=== PATIENT | male | born 1970 | race American Indian/Alaskan Native ===

== ENCOUNTER 2018-08-23 02:54 | Emergency (ER) | payer SELFPAY ==
[2018-08-23] MEDS ORDERED: TORADOL IM ONE (03:31)
[2018-08-23] MEDS ORDERED: TORADOL ONE (03:35)
--- NOTE | 2018-08-23 05:05 | Cat Scan Report ---
FINAL REPORT PROCEDURE: CT HEAD/BRAIN WO CON TECHNIQUE: Computerized tomography of the head was performed without contrast material. HISTORY: headache COMPARISON: No prior studies are available for comparison. FINDINGS: Skull and scalp: Normal. Paranasal sinuses: Normal. Ventricles and subarachnoid spaces: Normal. Cerebrum: No evidence of hemorrhage, acute infarction or mass . Cerebellum and brainstem: No evidence of hemorrhage, acute infarction or mass. Vasculature: Normal. Comments: None. IMPRESSION: Normal Examination
[2018-08-23 08:59] VITALS: BP 158/89
--- NOTE | 2018-08-23 09:41 | Emergency Department Report ---
ED General Adult HPI - General Chief complaint: Headache Stated complaint: SEVERE HEADACHE Time Seen by Provider: 08/23/18 08:52 Source: patient Mode of arrival: Ambulatory Limitations: No Limitations - History of Present Illness Initial comments: This is a 47-year-old male who complains of headache. He states that he has a history of hypertension but is not taking medication currently. He has had no fever or chills. His current blood pressure is 160/90. He states that he has "headaches every year". This is been going on for at least 3 years. Patient denies nausea vomiting or fever. He states he's had no sinus drainage. He does not report any neck pain. He denies any familial history of aneurysm or migraine headache. He denies any neurological change. He is very poorly cooperative to providing any historical information and does so under apparent duress. He states that his headache that he was seen here for on 08/19/2018 was on his right side and now the current headache is on the left side. He states that the headaches generally last about 3 hours but may be recurrent. He denies any photophobia scintillations or scotomata. A CT of the head was obtained on 08/19/2018. It showed no acute intracranial abnormality. -: Gradual, week(s) Location: head Severity scale (0 -10): 7 Quality: sharp Consistency: constant Improves with: none Worsens with: none Associated Symptoms: denies other symptoms - Related Data Previous Rx's Medication Instructions Recorded Last Taken Type Famotidine [Pepcid] 40 mg PO QDAY 6 Days #6 tablet 07/11/18 Unknown Rx diphenhydrAMINE [Benadryl CAP] 50 mg PO Q8HR PRN #12 capsule 07/11/18 Unknown Rx predniSONE [Prednisone] 10 mg PO QAM 6 Days #1 tab.ds.pk 07/11/18 Unknown Rx Amoxicillin/Potassium Clav 1 each PO BID 10 Days #20 tablet 08/19/18 Unknown Rx [Augmentin 875-125 Tablet] Clindamycin [Clindamycin CAP] 300 mg PO Q6H #40 capsule 08/19/18 Unknown Rx Ibuprofen 800 mg PO TID PRN #30 tablet 08/19/18 Unknown Rx Metoclopramide [Reglan] 10 mg PO ACHS PRN #28 tablet 08/19/18 Unknown Rx Oxymetazoline 0.05% [Afrin] 2 spray NS BID #1 bottle 08/19/18 Unknown Rx diphenhydrAMINE [Benadryl CAP] 25 mg PO Q6HR PRN #28 capsule 08/19/18 Unknown Rx Butalb/Acetaminophen/Caffeine 1 cap PO Q6HR PRN #14 cap 08/23/18 Unknown Rx [Fioricet 50-300-40 mg CAP] amLODIPine [Norvasc] 5 mg PO DAILY #30 tab 08/23/18 Unknown Rx Allergies Allergy/AdvReac Type Severity Reaction Status Date / Time lisinopril Allergy Unknown Verified 07/11/18 13:51 pineapple Allergy Unknown Verified 07/11/18 13:51 ED Review of Systems ROS: Stated complaint: SEVERE HEADACHE Other details as noted in HPI Constitutional: denies: chills, fever Eyes: denies: eye pain, eye discharge, vision change ENT: denies: ear pain, throat pain Respiratory: denies: cough, shortness of breath, wheezing Cardiovascular: denies: chest pain, palpitations Endocrine: no symptoms reported Gastrointestinal: denies: abdominal pain, nausea, diarrhea Genitourinary: denies: urgency, dysuria Musculoskeletal: denies: back pain, joint swelling, arthralgia Skin: denies: rash, lesions Neurological: headache. denies: weakness, paresthesias Psychiatric: denies: anxiety, depression Hematological/Lymphatic: denies: easy bleeding, easy bruising ED Past Medical Hx - Past Medical History Previous Medical History?: Yes Hx Hypertension: Yes (HCTZ) - Surgical History Past Surgical History?: Yes Additional Surgical History: left knee,hernia repair - Social History Smoking Status: Never Smoker Substance Use Type: None - Medications Home Medications: Home Medications Medication Instructions Recorded Confirmed Last Taken Type Famotidine [Pepcid] 40 mg PO QDAY 6 Days #6 tablet 07/11/18 Unknown Rx diphenhydrAMINE [Benadryl CAP] 50 mg PO Q8HR PRN #12 capsule 07/11/18 Unknown Rx predniSONE [Prednisone] 10 mg PO QAM 6 Days #1 tab.ds.pk 07/11/18 Unknown Rx Amoxicillin/Potassium Clav 1 each PO BID 10 Days #20 tablet 08/19/18 Unknown Rx [Augmentin 875-125 Tablet] Clindamycin [Clindamycin CAP] 300 mg PO Q6H #40 capsule 08/19/18 Unknown Rx Ibuprofen 800 mg PO TID PRN #30 tablet 08/19/18 Unknown Rx Metoclopramide [Reglan] 10 mg PO ACHS PRN #28 tablet 08/19/18 Unknown Rx Oxymetazoline 0.05% [Afrin] 2 spray NS BID #1 bottle 08/19/18 Unknown Rx diphenhydrAMINE [Benadryl CAP] 25 mg PO Q6HR PRN #28 capsule 08/19/18 Unknown Rx Butalb/Acetaminophen/Caffeine 1 cap PO Q6HR PRN #14 cap 08/23/18 Unknown Rx [Fioricet 50-300-40 mg CAP] amLODIPine [Norvasc] 5 mg PO DAILY #30 tab 08/23/18 Unknown Rx ED Physical Exam - General Limitations: No Limitations General appearance: alert, in no apparent distress - Head Head exam: Present: atraumatic, normocephalic - Eye Eye exam: Present: normal appearance, PERRL, EOMI. Absent: scleral icterus, conjunctival injection, periorbital swelling, periorbital tenderness Pupils: Present: normal accommodation - ENT ENT exam: Present: mucous membranes moist - Neck Neck exam: Present: normal inspection. Absent: tenderness, meningismus - Respiratory Respiratory exam: Present: normal lung sounds bilaterally. Absent: respiratory distress - Cardiovascular Cardiovascular Exam: Present: regular rate, normal rhythm. Absent: systolic murmur, diastolic murmur, rubs, gallop - GI/Abdominal GI/Abdominal exam: Present: soft, normal bowel sounds. Absent: distended, tenderness, guarding, rebound, rigid - Rectal Rectal exam: Present: deferred - Extremities Exam Extremities exam: Present: normal inspection - Back Exam Back exam: Present: normal inspection - Neurological Exam Neurological exam: Present: alert, oriented X3, CN II-XII intact. Absent: motor sensory deficit - Psychiatric Psychiatric exam: Present: normal affect, normal mood - Skin Skin exam: Present: warm, dry, intact, normal color. Absent: rash ED Course Vital Signs 08/23/18 08/23/18 08/23/18 03:26 04:15 08:57 Temperature 98.1 F 98.3 F Pulse Rate 61 52 L Respiratory 18 18 18 Rate Blood Pressure 161/86 Blood Pressure 158/89 [Right] O2 Sat by Pulse 98 100 Oximetry 08/23/18 08:58 Temperature Pulse Rate Respiratory 18 Rate Blood Pressure Blood Pressure [Right] O2 Sat by Pulse 100 Oximetry - Reevaluation(s) Reevaluation #1: The patient's headache pattern is not suggestive of secondary headache, especially considering the rotational pattern of being on the left than on the right. This may be a migraine variant. I do not think there is an indication for a vascular study at this time. There is nothing to suggest subarachnoid hemorrhage. Indeed the patient states that this pattern has been going on for "years". His blood pressure is not amply controlled. He will be treated for headache and referred to primary care. He is encouraged to be evaluated by a neurologist. 08/23/18 09:41 ED Medical Decision Making - Radiology Data Radiology results: report reviewed Critical care attestation.: If time is entered above; I have spent that time in minutes in the direct care of this critically ill patient, excluding procedure time. ED Disposition Clinical Impression: Essential hypertension Cephalalgia Qualifiers: Headache type: unspecified Headache chronicity pattern: chronic headache Intractability: not intractable Qualified Code(s): R51 - Headache Disposition: DC-01 TO HOME OR SELFCARE Is pt being admited?: No Does the pt Need Aspirin: No Condition: Stable Instructions: Acute Headache (ED), Hypertension (ED) Additional Instructions: Control of your blood pressure is needed. Rx amlodipine. I've given you another medication for your headaches. Further evaluation with a neurologist/primary care clinic is strongly recommended. Return any acute change or worsening symptoms. Prescriptions: amLODIPine [Norvasc] 5 mg PO DAILY #30 tab Butalb/Acetaminophen/Caffeine [Fioricet 50-300-40 mg CAP] 1 cap PO Q6HR PRN #14 cap PRN Reason: Headache Referrals: PRIMARY CARE, [Primary Care Provider] - 3-5 Days Time of Disposition: 09:44
[2018-08-23] MEDS ORDERED: MORPHINE IM ONE (09:46)
[2018-08-23] MEDS ORDERED: ZOFRAN ODT PO ONE (09:51)
[2018-08-23] MEDS ORDERED: ZOFRAN ODT ONE (09:55)
== END 2018-08-23 10:11 | disposition home or self-care (01) ==
LOC: ED 02:54
DX: I10 Essential (primary) hypertension (principal); Z91.018 Allergy to other foods; Z88.4 Allergy status to anesthetic agent
CPT/HCPCS: 70450; 96372; 99283; J1885; J2270; Q0162

== ENCOUNTER 2018-11-29 21:52 | Emergency (ER) | payer OTHER ==
[2018-11-29] MEDS ORDERED: BENADRYL IV ONE (23:36)
[2018-11-29] MEDS ORDERED: REGLAN IV ONE (23:36)
--- NOTE | 2018-11-29 23:40 | Emergency Department Report ---
ED Headache HPI - General Chief Complaint: Headache Stated Complaint: HEADACHE Time Seen by Provider: 11/29/18 23:27 - History of Present Illness Initial Comments: This is a 48-year-old -[place] male who presents with a history of migraine headache. Past medical history of hypertension but not currently taking medication. Patient reports a headache for 2-3 hours every night on the right side and sometimes alternating to the left. He reports pain is throbbing in sensation. Patient states he was seen in this emergency room and at [facility] and treated for sinusitis and migraines. Patient states he was given several different medications with no improvement of symptoms. Patient also reports he was seen in this emergency room twice in August. Timing/Duration: 1-3 hours Quality: constant, throbbing Head Injury Location: frontal Recent Head Trauma: no recent headache/trauma Modifying Factors: improves with: medication Associated Symptoms: denies symptoms Allergies/Adverse Reactions: Allergies lisinopril Allergy (Verified 07/11/18 13:51) Unknown pineapple Allergy (Verified 07/11/18 13:51) Unknown Home Medications: Ambulatory Orders Famotidine [Pepcid] 40 mg PO QDAY 6 Days #6 tablet 07/11/18 diphenhydrAMINE [Benadryl CAP] 50 mg PO Q8HR PRN #12 capsule 07/11/18 predniSONE [Prednisone] 10 mg PO QAM 6 Days #1 tab.ds.pk 07/11/18 Amoxicillin/Potassium Clav [Augmentin 875-125 Tablet] 1 each PO BID 10 Days #20 tablet 08/19/18 Clindamycin [Clindamycin CAP] 300 mg PO Q6H #40 capsule 08/19/18 Ibuprofen 800 mg PO TID PRN #30 tablet 08/19/18 Metoclopramide [Reglan] 10 mg PO ACHS PRN #28 tablet 08/19/18 Oxymetazoline 0.05% [Afrin] 2 spray NS BID #1 bottle 08/19/18 diphenhydrAMINE [Benadryl CAP] 25 mg PO Q6HR PRN #28 capsule 08/19/18 Butalb/Acetaminophen/Caffeine [Fioricet 50-300-40 mg CAP] 1 cap PO Q6HR PRN #14 cap 11/30/18 amLODIPine [Norvasc] 5 mg PO DAILY #30 tab 11/30/18 ED Review of Systems ROS: Stated complaint: HEADACHE Other details as noted in HPI Constitutional: denies: chills, fever Respiratory: denies: cough, shortness of breath, wheezing Cardiovascular: denies: chest pain, palpitations Gastrointestinal: denies: abdominal pain, nausea, diarrhea Skin: denies: rash, lesions Neurological: headache. denies: weakness, paresthesias Psychiatric: denies: anxiety, depression ED Past Medical Hx - Past Medical History Previous Medical History?: Yes Hx Hypertension: Yes (HCTZ) - Surgical History Past Surgical History?: Yes Additional Surgical History: left knee,hernia repair - Social History Smoking Status: Current Every Day Smoker Substance Use Type: None - Medications Home Medications: Home Medications Medication Instructions Recorded Confirmed Last Taken Type Famotidine [Pepcid] 40 mg PO QDAY 6 Days #6 tablet 07/11/18 Unknown Rx diphenhydrAMINE [Benadryl CAP] 50 mg PO Q8HR PRN #12 capsule 07/11/18 Unknown Rx predniSONE [Prednisone] 10 mg PO QAM 6 Days #1 tab.ds.pk 07/11/18 Unknown Rx Amoxicillin/Potassium Clav 1 each PO BID 10 Days #20 tablet 08/19/18 Unknown Rx [Augmentin 875-125 Tablet] Clindamycin [Clindamycin CAP] 300 mg PO Q6H #40 capsule 08/19/18 Unknown Rx Ibuprofen 800 mg PO TID PRN #30 tablet 08/19/18 Unknown Rx Metoclopramide [Reglan] 10 mg PO ACHS PRN #28 tablet 08/19/18 Unknown Rx Oxymetazoline 0.05% [Afrin] 2 spray NS BID #1 bottle 08/19/18 Unknown Rx diphenhydrAMINE [Benadryl CAP] 25 mg PO Q6HR PRN #28 capsule 08/19/18 Unknown Rx Butalb/Acetaminophen/Caffeine 1 cap PO Q6HR PRN #14 cap 11/30/18 Unknown Rx [Fioricet 50-300-40 mg CAP] amLODIPine [Norvasc] 5 mg PO DAILY #30 tab 11/30/18 Unknown Rx ED Physical Exam - General Limitations: No Limitations General appearance: alert, in no apparent distress, obese (morbidly obese) - Head Head exam: Present: atraumatic, normocephalic - ENT ENT exam: Present: normal orophraynx, mucous membranes moist, TM's normal bilaterally, normal external ear exam - Neck Neck exam: Present: normal inspection - Respiratory Respiratory exam: Present: normal lung sounds bilaterally. Absent: respiratory distress - Cardiovascular Cardiovascular Exam: Present: regular rate, normal rhythm. Absent: systolic murmur, diastolic murmur, rubs, gallop - GI/Abdominal GI/Abdominal exam: Present: soft, normal bowel sounds - Neurological Exam Neurological exam: Present: alert, oriented X3 - Psychiatric Psychiatric exam: Present: normal affect, normal mood - Skin Skin exam: Present: warm, dry, intact, normal color. Absent: rash ED Course Vital Signs 11/29/18 11/29/18 11/30/18 21:56 21:59 01:16 Temperature 98.4 F 98.4 F Pulse Rate 71 67 61 Respiratory 18 20 20 Rate Blood Pressure 176/106 176/106 124/62 O2 Sat by Pulse 97 97 97 Oximetry ED Medical Decision Making - Medical Decision Making This is a 48 y.o. male that presents with headache for 1 month. History of migraines. Patient is stable and was examined by me. CT of head obtained and normal 08/19/2018. Patient was also seen in this emergency room on August 23, 2018 with similar symptoms. Past medical history of hypertension and currently not taking medication. Given benadryl and reglan IV once in ER. Reevaluated patient reports headache is resolved. Start Fioricet and amlodipine. Referral to neurology for continued care. No further questions noted by the patient. Discharged home in stable condition. Follow up with PCP in 24-72 hours. Critical care attestation.: If time is entered above; I have spent that time in minutes in the direct care of this critically ill patient, excluding procedure time. ED Disposition Clinical Impression: Asymptomatic hypertension Migraine Qualifiers: Migraine type: without aura Status migrainosus presence: with status migrainosus Intractability: not intractable Qualified Code(s): G43.001 - Migraine without aura, not intractable, with status migrainosus Disposition: - TO HOME OR SELFCARE Is pt being admited?: No Does the pt Need Aspirin: No Condition: Stable Instructions: Migraine Headache (ED), Hypertension (ED) Additional Instructions: Take medication at start of headache. Moderate caffeine intake. Eat at scheduled times or 3 meals a day with snacks. Follow-up with neurology for continued care. Follow up with primary care provider in 24-72 hours. Prescriptions: Butalb/Acetaminophen/Caffeine [Fioricet 50-300-40 mg CAP] 1 cap PO Q6HR PRN #14 cap PRN Reason: Headache amLODIPine [Norvasc] 5 mg PO DAILY #30 tab Referrals: LISS CARRASQUILLO MD [Primary Care Provider] - 3-5 Days [facility] [Provider Group] - 3-5 Days [facility] [Provider Group] - 3-5 Days Time of Disposition: 01:03
[2018-11-30 01:21] VITALS: BP 124/62
== END 2018-11-30 01:23 | disposition home or self-care (01) ==
LOC: ED 21:52
DX: G43.909 Migraine, unspecified, not intractable, without status migrainosus (principal); I10 Essential (primary) hypertension; F17.200 Nicotine dependence, unspecified, uncomplicated; Z88.8 Allergy status to other drugs, medicaments and biological substances; Z91.018 Allergy to other foods
CPT/HCPCS: 96374; 96375; 99282; J1200; J2765